=== PATIENT | male | born 1955 | race Caucasian/White ===

== ENCOUNTER 2016-11-04 20:34 | Observation (INO) | payer BC ==
[~2016-11-04] VITALS: Ht 177.8 cm; Wt 98.4 kg
[2016-11-04] MEDS ORDERED: PRINZIDE 12.5 M1 TA1 PO (20:45)
[2016-11-04] MEDS ORDERED: ASPIRIN 81M81 MG/TA2 PO (20:46)
[2016-11-04] MEDS ORDERED: DOXYCYCLINE (20:47)
[2016-11-04 21:23] LABS: BASO # 0.1 (0.0-0.2); BASO % 0.5 % (0.0-2.0); EOS # 0.1 (0.0-0.7); EOS % 0.8 % (0-4.0); GRAN # 8.1 (1.4-6.5); GRAN % 77.2 % (42.2-75.2); HEMATOCRIT 49.3 % (42.0-52.0); HEMOGLOBIN 16.5 g/dl (13.5-18.0); LYMPH # 1.5 (1.2-3.4); LYMPH % 14.6 % (20.0-51.0); MEAN CELL VOLUME 93 fl (80.0-100.0); MEAN CORPUSCULAR HEMOGLOBIN 31 pg (27.0-31.0); MEAN CORPUSCULAR HGB CONC 34 g/dl (33.0-37.0); MEAN PLATELET VOLUME 9.6 fl (7.4-10.4); MONO # 0.7 (0.1-0.6); MONO % 6.5 % (1.7-9.3); PLATELET COUNT 272 K/mm3 (130-400); REDCELL DISTRIBUTION WIDTH-CV 12.9 % (11.5-14.5); WHITE BLOOD COUNT 10.4 K/mm3 (4.8-10.8)
[2016-11-04 21:26] VITALS: BP 101/64; PULSE 79
[2016-11-04 21:49] LABS: TROPONIN-I < 0.012 ng/mL (0.000-0.034)
[2016-11-04 21:51] LABS: ADJUSTED CALCIUM 8.7 mg/dL (8.4-10.2); ALANINE AMINOTRANSFERASE 65 U/L (21-72); ALBUMIN 4.6 gm/dL (3.5-5.0); ALKALINE PHOSPHATASE 64 U/L (50-136); ANION GAP 15 mmol/L (7-16); BILIRUBIN,TOTAL 1.1 mg/dL (0.0-1.0); BLOOD UREA NITROGEN 24 mg/dL (9-20); CALCIUM 9.2 mg/dL (8.4-10.2); CARBON DIOXIDE 28 mmol/L (22-30); CHLORIDE 99 mmol/L (98-107); CREATININE, serum 1.41 mg/dL (0.66-1.25); GLUCOSE 142 mg/dL (74-106); POTASSIUM 4.1 mmol/L (3.4-5.0); SODIUM 142 mmol/L (137-145)
[2016-11-04 22:15] LABS: LIPASE 78 U/L (23-300)
[2016-11-04 23:29] VITALS: BP 137/77; PULSE 83; TEMP 97
[2016-11-05 03:53] LABS: BASO % 0.3 % (0.0-2.0); EOS # 0.1 (0.0-0.7); EOS % 1.4 % (0-4.0); GRAN # 4.9 (1.4-6.5); GRAN % 85.9 % (42.2-75.2); HEMOGLOBIN 14.6 g/dl (13.5-18.0); LYMPH # 0.3 (1.2-3.4); LYMPH % 5.4 % (20.0-51.0); MEAN CELL VOLUME 94 fl (80.0-100.0); MEAN CORPUSCULAR HEMOGLOBIN 31 pg (27.0-31.0); MEAN CORPUSCULAR HGB CONC 33 g/dl (33.0-37.0); MEAN PLATELET VOLUME 9.5 fl (7.4-10.4); MONO # 0.4 (0.1-0.6); MONO % 6.8 % (1.7-9.3); PLATELET COUNT 221 K/mm3 (130-400); WHITE BLOOD COUNT 5.8 K/mm3 (4.8-10.8)
[2016-11-05 04:05] VITALS: BP 134/74; PULSE 93; TEMP 99
[2016-11-05 04:06] LABS: ANION GAP 13 mmol/L (7-16); BLOOD UREA NITROGEN 24 mg/dL (9-20); CALCIUM 7.7 mg/dL (8.4-10.2); CARBON DIOXIDE 25 mmol/L (22-30); CHLORIDE 104 mmol/L (98-107); CREATININE, serum 1.01 mg/dL (0.66-1.25); GLUCOSE 121 mg/dL (74-106); POTASSIUM 4.1 mmol/L (3.4-5.0); SODIUM 142 mmol/L (137-145)
[2016-11-05 08:12] VITALS: BP 112/62; PULSE 95; TEMP 99.4
[2016-11-05 12:24] VITALS: BP 111/66; PULSE 84; TEMP 99.4
[2016-11-05] MEDS ORDERED: DOXYCYCLINE 10100 MG PO (14:03)
[2016-11-05] MEDS ORDERED: ZOFRAN 4MG T4 MG/TAB PO (14:05)
[2016-11-05 14:52] LABS: PH 5 (5-8); SQUAMOUS EPITHELIAL None Seen /hpf; URINE APPEARANCE Clear; URINE BACTERIA None Seen /hpf; URINE BILIRUBIN Negative (NEGATIVE); URINE BLOOD Negative (NEGATIVE); URINE COLOR Yellow; URINE GLUCOSE Negative (NEGATIVE); URINE KETONE Negative (NEGATIVE); URINE WBC 0-2 /hpf
== END 2016-11-05 15:45 | disposition home or self-care (01) ==
LOC: COL.ER 20:34 → MEDICAL 22:59
PROVIDERS: Emergency Medicine; Nurse Practitioner Family
DX: K52.9 Noninfective gastroenteritis and colitis, unspecified (principal); R55 Syncope and collapse; I95.9 Hypotension, unspecified; I10 Essential (primary) hypertension; K21.9 Gastro-esophageal reflux disease without esophagitis; F17.290 Nicotine dependence, other tobacco product, uncomplicated
CPT/HCPCS: G0378; J1650; J2405; J2550; J7030; Q9967

== ENCOUNTER → 2020-03-25 | Outpatient (CLI) | payer MEDICARE, OTHER ==
[~2020-03-25] MED LIST: ASPIRIN 81M81 MG/TA2 PO; DOXYCYCLINE; DOXYCYCLINE 10100 MG PO; PRINZIDE 12.5 M1 TA1 PO; ZOFRAN 4MG T4 MG/TAB PO
== END ==
LOC: COL.RAD 07:29
DX: Z13.6 Encounter for screening for cardiovascular disorders (principal); F17.200 Nicotine dependence, unspecified, uncomplicated